=== PATIENT | female | born 1990 | race Caucasian/White ===

== ENCOUNTER 2017-03-19 13:58 | Emergency (ER) | payer OTHER ==
[2017-03-19] MEDS ORDERED: NS 0.9% 1000 ML* 1,000 ML IV ONE (18:06)
[2017-03-19] MEDS ORDERED: diPHENhydraMINE IV* 50 MG/ML 1 ml VIAL (BENADRYL) IV ONE (19:43)
[2017-03-19] MEDS ORDERED: Metoclopramide IV* 5 MG/ML 2 ML VIAL IV ONE (19:43)
[2017-03-19] MEDS ORDERED: Ketorolac INJ* 30 MG/ML 1 ML VIAL IV ONE (19:43)
[2017-03-19 22:09] VITALS: BP 123/61
--- NOTE | 2017-03-20 14:37 | ED ---
Helen Saxena Alok, scribed for Johnny Holm MD on 03/19/17 at 2004 . Headache - HPI Summary HPI Summary: 26F presents to the ED sent here from [place] with a VILLAR for the past 8 days, worsening 2 days ago. Pt states that what began as a constant, dull, diffuse VILLAR 8 days ago aggravated by coughing and bending over progressed into a constant, throbbing, stabbing, right sided temporal VILLAR with no provocation accompanied by dizziness and lightheadedness. Pt states she initially took Tylenol and Excedrin with no effect then dayquil which provided 30 min of temporary relief. At [facility] pt was given one shot of Toradol at 1300 which alleviated her pain from a 7/10 to a 4/10. Pt also notes slight nasal congestion. Pt denies neck pain or photophobia. - History Of Current Complaint Chief Complaint: EDHeadache Stated Complaint: HEADACHE/8DAYS Time Seen by Provider: 03/19/17 19:27 Hx Obtained From: Patient Onset/Duration: Started days ago, Worse Since - 2 days ago Initially Headache Was: Moderate Currently Pain Is: Moderate Timing: Constant Character: Dull - 8 days ago until 2 days ago, Throbbing - and stabbing, last 2 days Location of Headache: Diffuse - 8 days ago until 2 days ago, Temporal - right side, since two day sago Aggravating Factor: Other - coughing, bending Allevating Factors: Medication - dayquil, toradol Associated Signs And Symptoms: Dizziness - and lightheadedness, last two days - Allergies/Home Medications Allergies/Adverse Reactions: Allergies Allergy/AdvReac Type Severity Reaction Status Date / Time No Known Allergies Allergy Verified 03/19/17 18:29 PMH/Surg Hx/FS Hx/Imm Hx Neurological History: Denies: Hx Headaches Infectious Disease History: No Infectious Disease History: Denies: Traveled Outside the [place] in Last 30 Days - Family History Known Family History: Negative: Hypertension - Social History Alcohol Use: Occasionally Substance Use Type: Reports: None Smoking Status (MU): Never Smoked Tobacco Review of Systems Negative: Fever Negative: Photophobia Positive: Other - nasal congestion Negative: Other - neck pain Neurological: Other - Dizziness, lightheadedness Positive: Headache All Other Systems Reviewed And Are Negative: Yes Physical Exam Triage Information Reviewed: Yes Vital Signs On Initial Exam: Initial Vitals Temp Pulse Resp BP Pulse Ox 98.9 F 64 16 143/77 100 03/19/17 14:10 03/19/17 14:10 03/19/17 14:10 03/19/17 14:10 03/19/17 14:10 Vital Signs Reviewed: Yes Appearance: Positive: Well-Appearing, No Pain Distress Skin: Positive: Warm, Skin Color Reflects Adequate Perfusion, Dry Head/Face: Positive: Normal Head/Face Inspection Eyes: Positive: Normal ENT: Positive: Normal ENT inspection Neck: Positive: Supple, Nontender Respiratory/Lung Sounds: Positive: Clear to Auscultation, Breath Sounds Present Cardiovascular: Positive: RRR Abdomen Description: Positive: Nontender, Soft Bowel Sounds: Positive: Present Musculoskeletal: Positive: Normal Neurological: Positive: Normal Psychiatric: Positive: Normal, Affect/Mood Appropriate - [place] Coma Scale Coma Scale Total: 15 Diagnostics - Vital Signs Vital Signs Temp Pulse Resp BP Pulse Ox 03/19/17 17:02 99.5 F 62 16 126/63 100 03/19/17 14:53 98.2 F 72 16 118/61 100 03/19/17 14:17 98.9 F 77 16 143/77 99 03/19/17 14:10 98.9 F 64 16 143/77 100 - Laboratory Lab Statement: Any lab studies that have been ordered have been reviewed, and results considered in the medical decision making process. Headache Course/Dx - Course Course Of Treatment: Ms. Pereira presented having had a VILLAR for 8 days which did not respond well to toradol at [facility] and was sent over for possible imaging. Her VILLAR was behind her right eye on arrival. She had no meningeal signs. She got complete relief with IV fluids, toradol, reglan and benadryl. I recommended that if she has recurrent VILLAR's that we consider imaging again but for now I would hold off. This sounds like a benign tension/vascular VILLAR now. - Diagnoses Provider Diagnoses: Head ache Discharge - Discharge Plan Condition: Stable Disposition: HOME Prescriptions: HYDROcodone/ACETAMIN 5-325 MG* [[place] 5-325 TAB*] 1 tab PO Q6H PRN #20 tab MDD 4 PRN Reason: Pain Patient Education Materials: General Headache (ED) Referrals: CORIN Contreras [Primary Care Provider] - Additional Instructions: Follow up with [facility] The documentation as recorded by the scribe, Helen,Piotr accurately reflects the service I personally performed and the decisions made by me, Johnny Holm MD.
== END 2017-03-19 22:08 | disposition home or self-care (01) ==
LOC: ED 13:58
DX: R51 Headache (principal); R42 Dizziness and giddiness
CPT/HCPCS: 96374; 96375; 99283; J1200; J1885